=== PATIENT | male | born 1995 | race Caucasian/White ===

== ENCOUNTER 2016-08-30 07:23 | Day surgery (SDC) | payer MEDICAID ==
[2016-08-30 08:45] VITALS: BMI 25.7
[2016-08-30] MEDS ORDERED: Lactated Ringer's 500 ML IV ONE (10:10)
[2016-08-30] MEDS ORDERED: Propofol 10 mg/ml Inj (20 ML) ONE (10:14)
[2016-08-30 11:17] VITALS: O2SAT 99
[2016-08-30 11:21] VITALS: TEMP 98.9
[2016-08-30 11:41] VITALS: BP 126/59; PULSE 72; RESP 18
== END 2016-08-30 11:50 | disposition home or self-care (01) ==
LOC: C.ENDO 07:23
PROVIDERS: ATTEND Internal Medicine
DX: K29.70 Gastritis, unspecified, without bleeding (principal); Z87.19 Personal history of other diseases of the digestive system
CPT/HCPCS: 43239; 88305; 88312; 88313; 88342; J2001; J2704; J3010; J7120

== ENCOUNTER 2018-03-09 22:03 | Emergency (ER) | payer MEDICAID, OTHER ==
[2018-03-09 22:03] VITALS: BMI 25.7
[2018-03-09 22:23] VITALS: BP 116/73; PULSE 90; RESP 16; TEMP 98.8; O2SAT 96
--- NOTE | 2018-03-09 22:55 | C.PDOC ---
History Of Present Illness 22 year old male presents to the ER with a complaint of generalized body aches, cough, runny nose, and sore throat since yesterday. He has been taking OTC medication with minimal relief. Denies fever or chills. Time Seen by Provider: 03/09/18 22:36 Chief Complaint (Nursing): Flu-like Symptoms History Per: Patient History/Exam Limitations: no limitations Onset/Duration Of Symptoms: Days (Yesterday) Current Symptoms Are (Timing): Still Present Location Of Pain: Diffuse Myalgias Sick Contacts (Context): None Associated Symptoms: Sore Throat, Cough, Sinus Drainage, Myalgias. denies: Fever, Chills Ear Symptoms: Bilateral: None Recent travel outside of the [place]: No Past Medical History Reviewed: Historical Data, Nursing Documentation, Vital Signs Vital Signs: Last Vital Signs Temp 98.8 F 03/09/18 22:21 Pulse 90 03/09/18 22:21 Resp 16 03/09/18 22:21 BP 116/73 03/09/18 22:21 Pulse Ox 96 03/09/18 22:21 - Medical History PMH: Asthma, Bronchitis, Migraine, Pneumonia Denies: Chronic Kidney Disease Family History: States: Unknown Family Hx - Social History Hx Tobacco Use: No Hx Alcohol Use: No Hx Substance Use: No - Immunization History Hx Tetanus Toxoid Vaccination: Yes Hx Influenza Vaccination: No Hx Pneumococcal Vaccination: No Review Of Systems Constitutional: Negative for: Fever, Chills ENT: Positive for: Nose Discharge, Throat Pain Respiratory: Positive for: Cough Musculoskeletal: Positive for: Other (Generalized body aches) Physical Exam - Physical Exam Appears: Non-toxic Skin: Normal Color, Warm, Dry Head: Atraumatic, Normacephalic Eye(s): bilateral: Normal Inspection Ear(s): Bilateral: Normal Nose: Normal Oral Mucosa: Moist Throat: Normal, No Erythema, No Exudate Neck: Normal, Supple Chest: Symmetrical, No Tenderness Cardiovascular: Rhythm Regular Respiratory: Normal Breath Sounds, No Rales, No Rhonchi, No Wheezing Neurological/Psych: Oriented x3, Normal Speech Gait: Steady ED Course And Treatment O2 Sat by Pulse Oximetry: 96 (Room air) Pulse Ox Interpretation: Normal Progress Note: Patient is resting comfortably in the ER in no acute distress, vitals are stable, will discharge home with Rx and instructions to follow up with PMD. Disposition Counseled Patient/Family Regarding: Diagnosis, Need For Followup, Rx Given - Disposition Referrals: Lay Lazo MD [Medical Doctor] - Disposition: HOME/ ROUTINE Disposition Time: 22:51 Condition: STABLE Additional Instructions: Please follow up with PMD Take medications as directed Return to ER if worse Prescriptions: Benzonatate [Tessalon Perles] 100 mg PO TID #20 sgl Cetirizine HCl [Zyrtec] 10 mg PO DAILY #20 capsule Instructions: Viral Upper Respiratory Infection, Adult (DC) Forms: [employer] ([place]) - Clinical Impression Clinical Impression: Upper respiratory infection - PA / FLEXIBLE NANNY / Resident Statement MD/DO has reviewed & agrees with the documentation as recorded. - Scribe Statement The provider has reviewed the documentation as recorded by the Scribmolly Fallon All medical record entries made by the Asiaibmolly were at my direction and personally dictated by me. I have reviewed the chart and agree that the record accurately reflects my personal performance of the history, physical exam, medical decision making, and the department course for this patient. I have also personally directed, reviewed, and agree with the discharge instructions and disposition.
== END 2018-03-09 23:02 | disposition home or self-care (01) ==
LOC: C.ER 22:03
DX: J06.9 Acute upper respiratory infection, unspecified (principal)